=== PATIENT | female | born 1990 | race Caucasian/White ===

== ENCOUNTER 2019-09-10 14:30 | Outpatient (RCR) | payer BC, SELFPAY ==
[2019-09-10 16:16] LABS: Hematocrit 32.7 % (37.0-47.0)
[2019-09-10 16:29] LABS: Glucose 1 Hour PP 50gm Dose 194 mg/dL
[2019-09-10 17:10] LABS: HIV 1/2 Ab P24 Ag Result Negative (Negative)
[2019-09-11 10:29] LABS: Rapid Plasma Reagin Non-Reactive (NonReactive)
[2019-09-13] MEDS: RHO(D) IMMUNE GLOBULIN 300 MCG SYRINGE IM (18:11)
== END 2019-12-09 23:59 | disposition home or self-care (01) ==
LOC: ANHLAB 14:30
PROVIDERS: PCP Physician Assistant; Visit Provider Obstetrics & Gynecology
DX: Z36.89 Encounter for other specified antenatal screening (principal); Z29.13 Encounter for prophylactic Rho(D) immune globulin; O36.0990 Maternal care for other rhesus isoimmunization, unspecified trimester, not applicable or unspecified; Z3A.00 Weeks of gestation of pregnancy not specified
CPT/HCPCS: 36415; 82947; 85014; 85018; 86592; 86703; 86900; 86901; 90384; 96372; G0432; J2790

== ENCOUNTER 2019-11-27 11:11 | Outpatient (CLI) | payer BC, SELFPAY ==
[2019-11-27 11:35] VITALS: BP 137/82; PULSE 81
[2019-11-27 11:45] VITALS: BP 133/79; PULSE 91
[2019-11-27 11:51] LABS: Basophils Percent Auto 0.3 % (0.2-1.2); Eosinophils Percent Auto 0.3 % (0-4.4); Hematocrit 36.9 % (37.0-47.0); Hemoglobin 12.7 g/dL (12.0-15.0); Immature Granulocyte Absolute 0.13 K/mm3 (0.00-0.031); Immature Granulocyte Percent A 1.7 % (0-0.5); Lymphocytes Absolute Auto 1.78 K/mm3 (0.9-3.2); Lymphocytes Percent Auto 22.8 % (18.3-44.2); Mean Corpuscular HGB Conc 34.4 g/dl (32-36); Mean Corpuscular Hemoglobin 30.8 pg (26-34); Mean Corpuscular Volume 89.6 fl (80-100); Mean Platelet Volume 12.2 fl (7.4-10.4); Monocytes Absolute Auto 0.6 K/mm3 (0.1-0.6); Monocytes Percent Auto 7.4 % (2.6-8.5); Neutrophils Absolute Auto 5.3 K/mm3 (1.3-6.7); Neutrophils Percent Auto 67.5 % (45.5-73.1); Platelet Count Result 142 k/mm3 (150-375); Red Blood Count 4.12 M/mm3 (4.2-5.4); Red Cell Distribution Width 12.5 % (11.5-14.5); White Blood Count 7.8 K/mm3 (4.5-10.0)
[2019-11-27 11:56] LABS: Creatinine Urine 41.7 mg/dL; Total Protein Urine Random 16 mg/dL
[2019-11-27 11:57] LABS: Add Urine Microscopic? YES; Appearance Urine Cloudy (Clear); Bacteria Urine Trace /hpf; Bilirubin Urine Negative (Negative); Blood Urine 3+ (Negative); Color Urine Straw (Yellow); Glucose Urine UA Negative (Negative); Ketones Urine Negative (Negative); Leukocyte Esterase Ur 1+ LEU/UL (NEGATIVE); Mucus Urine Rare /lpf; Nitrate Urine Negative (Negative); Protein Urine Negative (Negative); Specific Grav Ur 1.012 (1.001-1.035); Squamous Epithelial Cell Urine Many /hpf (Few); Urobilinogen Urine Negative mg/dL (<2.0); WBC Urine 16-20 /hpf (0-3)
[2019-11-27 12:00] VITALS: BP 135/82; PULSE 90
[2019-11-27 12:03] LABS: Alanine Aminotransferase 14 U/L (4-35); Albumin Level 3.5 g/dL (3.5-5.1); Alkaline Phosphatase 133 U/L (38-126); Aspartate Amino Transferase 20 U/L (14-36); Bilirubin,Total 0.2 mg/dL (0.2-1.3); Blood Urea Nitrogen 4 mg/dL (7-17); Calcium 8.9 mg/dL (8.4-10.2); Carbon Dioxide 21 mmol/L (22-30); Chloride 106 mmol/L (98-107); Estimated Glomerular Filt Rate > 60; Glucose 99 mg/dL (65-105); Potassium 3.6 mmol/L (3.4-5.0); Sodium 133 mmol/L (137-145); Uric Acid 3.6 mg/dL (2.5-7.5)
[2019-11-27 12:04] VITALS: TEMP 36.6
[2019-11-27 12:15] VITALS: BP 129/81; PULSE 94
[2019-11-27 15:34] VITALS: BP 137/82; PULSE 82
== END 2019-11-27 15:46 | disposition home or self-care (01) ==
LOC: ANHOBOP 11:16 → ANHOBPP 11:18 → ANHLDR 12-03 08:40
PROVIDERS: Advanced Practice Midwife; PCP Physician Assistant; Visit Provider Obstetrics & Gynecology
DX: O13.9 Gestational [pregnancy-induced] hypertension without significant proteinuria, unspecified trimester (principal)
CPT/HCPCS: 36415; 80053; 81001; 82570; 84156; 84550; 85025; 87086; 99199

== ENCOUNTER 2019-11-30 05:00 | Inpatient (IN) | payer BC, SELFPAY ==
[2019-11-30] VITALS (127 sets, daily range): BP systolic 100–147; BP diastolic 44–119; PULSE 62–116; RESP 18–20; TEMP 36.3–37.3; O2SAT 98–100; BMI 34.4
--- NOTE | 2019-11-30 05:30 | LDADM ---
This patient, Emilee Alatorre, was admitted to Labor/Delivery/Recovery 103 on 11/30/19 at 05:00. Plans for labor, pain management and were discussed with patient. Patient/family oriented to hospital policies and general routines including ID bracelet, bed and alarms, visiting hours, pain management, procedures, bathroom and other care routines, personal items, smoking policy, room service/diet and guest tray routines, infant security routines, and visiting hours. Patient/Family are encouraged to report perceived risks to care and to ask questions if they do not understand what they are told or what they should do. See OBIX for further documentation.
[2019-11-30] MEDS: LACTATED RINGERS 1,000 ML 125 ML IV CONT ×3 (05:55→14:53)
[2019-11-30] MEDS: AMPICILLIN 2 GM/NS 100 ML 2 GM/100 ML BAG IVPB (05:55)
[2019-11-30] MEDS: OXYTOCIN 30 UNITS/NS 500 ML 30 UNITS/500 ML BAG IV CONT (06:01)
[2019-11-30 06:12] LABS: Basophils Percent Auto 0.2 % (0.2-1.2); Eosinophils Percent Auto 0.4 % (0-4.4); Hematocrit 36.4 % (37.0-47.0); Hemoglobin 12.4 g/dL (12.0-15.0); Immature Granulocyte Absolute 0.12 K/mm3 (0.00-0.031); Immature Granulocyte Percent A 1.5 % (0-0.5); Lymphocytes Percent Auto 28.7 % (18.3-44.2); Mean Corpuscular HGB Conc 34.1 g/dl (32-36); Mean Corpuscular Hemoglobin 30.5 pg (26-34); Mean Corpuscular Volume 89.7 fl (80-100); Mean Platelet Volume 12.4 fl (7.4-10.4); Monocytes Absolute Auto 0.5 K/mm3 (0.1-0.6); Monocytes Percent Auto 5.9 % (2.6-8.5); Neutrophils Absolute Auto 5.1 K/mm3 (1.3-6.7); Neutrophils Percent Auto 63.3 % (45.5-73.1); Platelet Count Result 147 k/mm3 (150-375); Red Blood Count 4.06 M/mm3 (4.2-5.4); Red Cell Distribution Width 12.4 % (11.5-14.5)
--- NOTE | 2019-11-30 06:32 | P.PNAN_ITS ---
Anes - Eval Pre Procedure Procedure: Labor epidural Date/Time: 11/30/19 06:32 Surgeon: Rakesh Thapa M.D. Preop Diagnosis: pain during labor Pre Op Diagnosis: Induction Patient Data Age: 29 Gender: F Height: 1.68 m Weight: 97 kg Last Vital Signs Temp 37.3 C 11/30/19 06:02 Pulse 77 11/30/19 06:31 BP 137/82 11/30/19 06:31 Allergies Allergy/AdvReac Type Severity Reaction Status Date / Time No Known Allergies Allergy Mild Verified 12/29/10 14:09 Home Medications Medication Instructions Recorded Confirmed Type PNV cmb#95-ferrous fumarate-FA 1 tablet PO DAILY 11/22/19 11/22/19 History [] lisdexamfetamine [Vyvanse] 20 mg PO DAILY 11/22/19 11/22/19 History Laboratory Tests 11/30/19 11/30/19 05:59 05:59 WBC 8.0 K/mm3 K/mm3 (4.5-10.0) RBC 4.06 M/mm3 L M/mm3 (4.2-5.4) Hgb 12.4 g/dL g/dL (12.0-15.0) Hct 36.4 % L % (37.0-47.0) MCV 89.7 fl fl (80-100) MCH 30.5 pg pg (26-34) MCHC 34.1 g/dl g/dl (32-36) RDW 12.4 % % (11.5-14.5) Plt Count 147 k/mm3 L k/mm3 (150-375) MPV 12.4 fl H fl (7.4-10.4) Immature Gran % (Auto) 1.5 % H % (0-0.5) Neut % (Auto) 63.3 % % (45.5-73.1) Lymph % (Auto) 28.7 % % (18.3-44.2) [place] % (Auto) 5.9 % % (2.6-8.5) Eos % (Auto) 0.4 % % (0-4.4) Baso % (Auto) 0.2 % % (0.2-1.2) Lymph # (Auto) 2.30 K/mm3 K/mm3 (0.9-3.2) [place] # (Auto) 0.5 K/mm3 K/mm3 (0.1-0.6) Eos # (Auto) 0.0 K/mm3 K/mm3 (0-0.3) Baso # (Auto) 0.0 K/mm3 K/mm3 (0.0-0.1) Abs Immat Gran (auto) 0.12 K/mm3 H K/mm3 (0.00-0.031) Absolute Neuts (auto) 5.1 K/mm3 K/mm3 (1.3-6.7) Absolute Nucleated RBC 0.0 K/mm3 K/mm3 (0.0-0.012) Nucleated RBC % 0.0 % % (0.0-0.2) RPR Pending Patient hx anesthesia problems: none Family hx anesthesia problems: none [facility] Past Medical History Medical History (Updated 11/30/19 @ 06:33 by Sindy Fischer CRNA) ADHD Family History Family History (Updated 11/22/19 @ 13:45 by Erasmo Whitlock RN) Grandparent Diabetes mellitus Social History Social History Smoking status: Former smoker Tobacco type: e-cigarettes/vaping Substance use: never Gender identity (if verbalized by the patient): Female Spiritual care concerns: No Exam Day of Procedure 11/30/19 06:32
--- NOTE | 2019-11-30 07:28 | WPDOBADMIT ---
Obstetrics - Admit Note Admission Note: record reviewed. No pertinent additions to the history and/or any subsequent changes in the physical findings that are not consistent with the expected course of the were found. Induction of labor, newly developed GHTN, plan pitocin, AROM attempted but pt uncomfortable, anticipate vaginal delivery Additions to the history and/or subsequent changes in the physical findings follow. None.
[2019-11-30] MEDS: AMPICILLIN 1 GM/NS 50 ML 1 GM/50 ML BAG IVPB ×2 (10:38→14:30)
[2019-11-30 11:20] LABS: Rapid Plasma Reagin Non-Reactive (NonReactive)
--- NOTE | 2019-11-30 16:04 | PM.OBPNVD ---
OB - PN: Subj Subjective Date/time seen: 11/30/19 16:04 OB - PN: Obj Data Labs CBC & Chem 7: 11/30/19 05:59 Labs: Laboratory Results - last 24 hr 11/30/19 11/30/19 11/30/19 05:59 05:59 05:59 WBC 8.0 RBC 4.06 L Hgb 12.4 Hct 36.4 L MCV 89.7 MCH 30.5 MCHC 34.1 RDW 12.4 Plt Count 147 L MPV 12.4 H Immature Gran % (Auto) 1.5 H Neut % (Auto) 63.3 Lymph % (Auto) 28.7 [place] % (Auto) 5.9 Eos % (Auto) 0.4 Baso % (Auto) 0.2 Lymph # (Auto) 2.30 [place] # (Auto) 0.5 Eos # (Auto) 0.0 Baso # (Auto) 0.0 Abs Immat Gran (auto) 0.12 H Absolute Neuts (auto) 5.1 Absolute Nucleated RBC 0.0 Nucleated RBC % 0.0 RPR Non-reactive Blood Type O Negative Antibody Screen Negative OB - PN A/P Time Spent With Patient Time: Total time spent is greater than 50% in coordination of care (as documented) at patient's floor/unit and/or counseling patient: AROM moderate amount of clear fluid, anticipate vaginal delivery
--- NOTE | 2019-11-30 18:06 | P.PCNOB_ITS ---
OB - Delivery Note Procedure Delivery date: 11/30/19 Procedure: vaginal delivery events: Induced HTN Intrapartal events: None Induction method: AROM and per pitocin protocol Delivery monitor: external FHT and internal uterine Route of delivery: Laceration description: None Specimen: Yes Estimated blood loss (mL): 210 Anesthesia type: Epidural Disposition: other () [place] Baby Date of : 11/30/19 Time of : 17:51 Weeks of gestation at delivery: 40 gender: Male Weight (pounds): 7 Weight (ounces): 3 presentation: vertex position: Left Occiput Anterior Placenta delivery description: Spontaneous cord vessel description: 3 Vessels and Tight (around foot x 3) score one minute: 8 score five minutes: 9
[2019-11-30] MEDS: OXYTOCIN 30 UNITS/NS 500 ML 30 UNITS/500 ML BAG 125 UNITS IV CONT (18:31)
[2019-11-30] MEDS: BENZOCAINE 20% AER SPR (*SP) 56 GM CAN 1 SPRAY TOPICAL (20:47)
[2019-11-30] MEDS: WITCH HAZEL 40 PADS 1 PAD TOPICAL (20:47)
--- NOTE | 2019-11-30 21:09 | PHAR ---
HOME MEDICATION VERIFIED BY PHARMACY: VYVANSE 20MG CAPSULES 1 CAP PO QA RX#[id number]
[2019-11-30] MEDS: IBUPROFEN 600 MG TABLET PO (21:24)
--- NOTE | 2019-11-30 21:44 | OBPPTRN ---
Patient transferred to post room #287 via WC. Support person present. Oriented to unit, room, information board, rooming in, admission packet and security measures. Patient verbalizes understanding. Infant to room 287 per crib with patient.
[2019-12-01] MEDS: LANOLIN (LANSINOH) 7.5 GM CREAM 1 APPLIC TOPICAL
[2019-12-01 04:40] LABS: Hematocrit 32.1 % (37.0-47.0); Hemoglobin 10.7 g/dL (12.0-15.0)
[2019-12-01] MEDS: IBUPROFEN 600 MG TABLET PO ×2 (07:23→16:40)
[2019-12-01] MEDS: MULTIVIT/MIN/PREN/FOL AC/IRON TABLET 1 TAB PO (07:23)
[2019-12-01 07:25] VITALS: BP 130/76; PULSE 78; RESP 18; TEMP 37.3
[2019-12-01 11:52] LABS: Basophils Percent Auto 0.2 % (0.2-1.2); Eosinophils Percent Auto 0.2 % (0-4.4); Hematocrit 32.5 % (37.0-47.0); Immature Granulocyte Absolute 0.08 K/mm3 (0.00-0.031); Immature Granulocyte Percent A 0.9 % (0-0.5); Lymphocytes Absolute Auto 1.51 K/mm3 (0.9-3.2); Lymphocytes Percent Auto 17.2 % (18.3-44.2); Mean Corpuscular HGB Conc 33.8 g/dl (32-36); Mean Corpuscular Hemoglobin 30.9 pg (26-34); Mean Corpuscular Volume 91.3 fl (80-100); Mean Platelet Volume 12.5 fl (7.4-10.4); Monocytes Absolute Auto 0.6 K/mm3 (0.1-0.6); Monocytes Percent Auto 6.8 % (2.6-8.5); Neutrophils Absolute Auto 6.5 K/mm3 (1.3-6.7); Neutrophils Percent Auto 74.7 % (45.5-73.1); Platelet Count Result 117 k/mm3 (150-375); Red Blood Count 3.56 M/mm3 (4.2-5.4); Red Cell Distribution Width 12.6 % (11.5-14.5); White Blood Count 8.8 K/mm3 (4.5-10.0)
[2019-12-01 12:09] LABS: Alanine Aminotransferase 13 U/L (4-35); Alkaline Phosphatase 106 U/L (38-126); Aspartate Amino Transferase 26 U/L (14-36); Bilirubin,Total 0.2 mg/dL (0.2-1.3); Blood Urea Nitrogen 7 mg/dL (7-17); Calcium 8.4 mg/dL (8.4-10.2); Carbon Dioxide 25 mmol/L (22-30); Chloride 108 mmol/L (98-107); Estimated CRCL calculation 141 ml/min; Estimated Glomerular Filt Rate > 60; Glucose 82 mg/dL (65-105); Potassium 3.9 mmol/L (3.4-5.0); Sodium 135 mmol/L (137-145); Uric Acid 3.4 mg/dL (2.5-7.5)
--- NOTE | 2019-12-01 13:33 | PM.OBPNVD ---
OB - PN: Subj Subjective Date/time seen: 12/01/19 1025 OB - PN: Obj Data Labs CBC & Chem 7: 12/01/19 11:37 12/01/19 11:37 Labs: Laboratory Results - last 24 hr 12/01/19 12/01/19 12/01/19 04:29 04:29 11:37 WBC 8.8 RBC 3.56 L Hgb 10.7 L 11.0 L Hct 32.1 L 32.5 L MCV 91.3 MCH 30.9 MCHC 33.8 RDW 12.6 Plt Count 117 L MPV 12.5 H Immature Gran % (Auto) 0.9 H Neut % (Auto) 74.7 H Lymph % (Auto) 17.2 L [place] % (Auto) 6.8 Eos % (Auto) 0.2 Baso % (Auto) 0.2 Lymph # (Auto) 1.51 [place] # (Auto) 0.6 Eos # (Auto) 0.0 Baso # (Auto) 0.0 Abs Immat Gran (auto) 0.08 H Absolute Neuts (auto) 6.5 Absolute Nucleated RBC 0.0 Nucleated RBC % 0.0 Sodium Potassium Chloride Carbon Dioxide BUN Creatinine Estim Creat Clear Calc Estimated GFR Glucose Uric Acid Calcium Total Bilirubin AST ALT Alkaline Phosphatase Total Protein Albumin Blood Type O Negative Antibody Screen Negative Screen Negative Baby's Blood Type O pos Baby's FRANCISCO Negative Doses of RhIg Required 1 12/01/19 11:37 WBC RBC Hgb Hct MCV MCH MCHC RDW Plt Count MPV Immature Gran % (Auto) Neut % (Auto) Lymph % (Auto) [place] % (Auto) Eos % (Auto) Baso % (Auto) Lymph # (Auto) [place] # (Auto) Eos # (Auto) Baso # (Auto) Abs Immat Gran (auto) Absolute Neuts (auto) Absolute Nucleated RBC Nucleated RBC % Sodium 135 L Potassium 3.9 Chloride 108 H Carbon Dioxide 25 BUN 7 Creatinine 0.60 L Estim Creat Clear Calc 141 Estimated GFR > 60 Glucose 82 Uric Acid 3.4 Calcium 8.4 Total Bilirubin 0.2 AST 26 ALT 13 Alkaline Phosphatase 106 Total Protein 6.0 L Albumin 3.0 L Blood Type Antibody Screen Screen Baby's Blood Type Baby's FRANCISCO Doses of RhIg Required OB - PN A/P Plan day: 1 Plan: routine care Comments: Pt desires d/c home today. She has had a few elevated blood pressures post . I would like to check PIH labs. If they are normal and bp remains normal we could consider d/c to home this eveing. Pt is able to monitor bp at home. Discussed s/s of pih in great detail and precautions given. Pt verbalized understanding. Will await lab results. Time Spent With Patient Time: Total time spent is greater than 50% in coordination of care (as documented) at patient's floor/unit and/or counseling patient: Review of Systems Review of Systems: All systems reviewed & are unremarkable except as noted in HPI and below Exam Narrative: Exam Narrative: Pt denies h/a, v/d, or e/p. Minimal/trace lower ext edema. DTR 2+ no clonus. Const: General: comfortable Chest: Breast/axilla inspection: normal inspection of the breasts Resp: Effort & Inspection: normal respiratory effort Auscultation: clear to auscultation bilaterally Cardio: Rate: regular rate GI: Auscultation: normal bowel sounds Psych: Appearance: grossly normal Affect: normal affect Attitude: cooperative Judgement: Good judgement present (Psych)
[2019-12-01] MEDS: RHO(D) IMMUNE GLOBULIN 300 MCG SYRINGE IM (16:54)
[2019-12-01 19:00] VITALS: BP 134/87; PULSE 68; RESP 18; TEMP 36.7; O2SAT 100
[2019-12-01 19:11] LABS: Basophils Percent Auto 0.3 % (0.2-1.2); Eosinophils Percent Auto 0.4 % (0-4.4); Hematocrit 32.6 % (37.0-47.0); Hemoglobin 10.9 g/dL (12.0-15.0); Immature Granulocyte Absolute 0.12 K/mm3 (0.00-0.031); Immature Granulocyte Percent A 1.3 % (0-0.5); Lymphocytes Absolute Auto 2.16 K/mm3 (0.9-3.2); Lymphocytes Percent Auto 23.8 % (18.3-44.2); Mean Corpuscular HGB Conc 33.4 g/dl (32-36); Mean Corpuscular Hemoglobin 30.8 pg (26-34); Mean Corpuscular Volume 92.1 fl (80-100); Mean Platelet Volume 11.9 fl (7.4-10.4); Monocytes Absolute Auto 0.6 K/mm3 (0.1-0.6); Monocytes Percent Auto 6.2 % (2.6-8.5); Neutrophils Absolute Auto 6.2 K/mm3 (1.3-6.7); Platelet Count Result 122 k/mm3 (150-375); Red Blood Count 3.54 M/mm3 (4.2-5.4); Red Cell Distribution Width 12.8 % (11.5-14.5); White Blood Count 9.1 K/mm3 (4.5-10.0)
[2019-12-01 19:23] LABS: Alanine Aminotransferase 13 U/L (4-35); Alkaline Phosphatase 116 U/L (38-126); Aspartate Amino Transferase 23 U/L (14-36); Bilirubin,Total < 0.1 mg/dL (0.2-1.3); Blood Urea Nitrogen 7 mg/dL (7-17); Calcium 8.4 mg/dL (8.4-10.2); Carbon Dioxide 22 mmol/L (22-30); Chloride 108 mmol/L (98-107); Estimated CRCL calculation 166 ml/min; Estimated Glomerular Filt Rate > 60; Glucose 102 mg/dL (65-105); Potassium 3.8 mmol/L (3.4-5.0); Sodium 136 mmol/L (137-145); Uric Acid 3.4 mg/dL (2.5-7.5)
--- NOTE | 2019-12-01 20:00 | PC.NURSE ---
Patient refused rubella vaccine.
[2019-12-03 09:39] VITALS: BP 129/82; PULSE 68; RESP 20; TEMP 36.6
--- NOTE | 2019-12-05 20:02 | PM.OBDSVD ---
DS: Admitting Diagnosis Admitting Diagnosis Admitting Diagnosis: Encounter for supervision of normal , unspecified, third trimester OB - DS: Summary OB Procedures : None OB Procedures Intrapartum: Spontaneous Vag Delivery OB Procedures: : None Time Spent with Patient Time attestation: Total time spent providing and/or coordinating discharge services: DS: Data Data Completed and Pending Completed studies during hospitalization: Pending at discharge 11/30/19 18:28 Surgical [PTH] Routine Discharge Plan Discharge Consulting providers: Lupe Jara ; Catherine Greenberg Discharging Clinician: Catherine Greenberg Patient Disposition: Home, Self-Care Activity: may shower, may drive after 2 weeks and pelvic rest Diet: regular Discharge Instructions: Education: Mom and Baby Guide Given to: Mother PIH Precautions discussed and handout given. Follow-Up: Call your delivering provider's office for an appointment to be seen in: 1 Week for blood pressure check. Mom and baby should come to the [facility] for the follow-up appointment. Appointment Date/Time: Tuesday, December 03, 2019 at 9:00 am What to expect at your follow-up visit: Blood Pressure Check Physical Assessment Call [phone] if you are unable to keep your appointment time. BREAST CARE: 1. Wear a snug supportive bra. 2. For engorgement discomfort: Breast Feeding: A. Apply warm moist washcloths B. Express milk as needed to relieve engorgement C. Wear loose clothing Bottle Feeding: A. May apply ice packs 3. For sore nipples: A. Identify correct latch-on B. Apply warm moist washcloths before and after nursing C. Air dry nipples after nursing D. May apply Lansinoh cream to nipples EPISIOTOMY/PERINEAL CARE: 1. Until bleeding stops, use your anthony bottle after urinating 2. Change your pad frequently throughout the day 3. You may take sitz baths several times a day (fill your bathtub with warm water and soak for 20 minutes.) Do NOT bathe in the water 4. No tub baths until seen by your physician - You may shower ACTIVITY: 1. Rest as much as possible. 2. Do not exercise or lift anything heavier than your baby (such as laundry or other children.) 3. Avoid stairs or driving as much as possible. 4. Do not put anything into the vagina. No douching, tampons, or sexual activity until seen by physician. NOTIFY PHYSICIAN IF YOU HAVE ANY QUESTIONS OR IF ANY OF THE FOLLOWING SYMPTOMS OCCUR: 1. If your episiotomy or incision becomes red, swollen, or more painful than what you have experienced in the hospital. 2. If your vaginal bleeding becomes foul smelling. 3. If your vaginal bleeding becomes more heavy than a period or if your bleeding changes from pink to bright red. However, you may pass an occasional walnut-sized clot once or twice for the first week . 4. If you experience a sharp, shooting pain in you calves. 5. If you discover a hard, reddened area on your breast or if you experience flu-like symptoms. DIET: 1. Eat regular, well-balanced meals. 2. Drink plenty of fluids daily. If , drink to thirst. Patient Instructions: Antibiotic Form Stand Alone Forms: General Discharge Information Follow-up/Referrals: Catherine Greenberg CNM [Certified Nurse Medication Specialist] - Discharge Medications: New KPN Tablet 1 tab PO DAILY RF: 0 Preparation H (Crow Banerjee) 50 % Pads, Medicated 1 pad topical PRN PRN (Reason: Perineal Discomfort) RF: 0 Continued Vyvanse 20 mg Capsule 20 mg PO DAILY RF: 0 Discontinued PNV cmb#95-ferrous fumarate-FA [] 28 mg iron- 800 mcg Tablet 1 tablet PO DAILY RF: 0 Date of admission: 11/30/19 05:00 Primary Care Provider: Shelly,Kaylee Admitting Provider: Zoë Thapa Discharge Date/Time: 12/01/19 20:25 Attending rolo
== END 2019-12-01 20:25 | disposition home or self-care (01) | DRG 807 ==
LOC: ANHLDR 05:19 → ANHOB2 21:56
PROVIDERS: Advanced Practice Midwife; Admitting Provider Obstetrics & Gynecology; PCP Physician Assistant; Visit Provider Obstetrics & Gynecology
DX: O13.4 Gestational [pregnancy-induced] hypertension without significant proteinuria, complicating childbirth (principal); Z37.0 Single live birth; Z3A.40 40 weeks gestation of pregnancy; O99.824 Streptococcus B carrier state complicating childbirth; O36.8330 Maternal care for abnormalities of the fetal heart rate or rhythm, third trimester, not applicable or unspecified; O69.2XX0 Labor and delivery complicated by other cord entanglement, with compression, not applicable or unspecified; O99.344 Other mental disorders complicating childbirth; F90.9 Attention-deficit hyperactivity disorder, unspecified type
CPT/HCPCS: 36415; 80053; 81001; 82570; 84156; 84550; 85014; 85018; 85025; 85461; 86592; 86850; 86900; 86901; 87086; 88307; 90384; 99199; A9270; J0290; J2590; J2790; J2795; J7120

== ENCOUNTER 2021-09-07 13:27 | Outpatient (CLI) | payer BC, SELFPAY ==
--- NOTE | ~2021-09-07 | US_ITS ---
US breast RT limited INDICATION: Probable right breast lump TECHNIQUE: Dedicated right breast ultrasound COMPARISON: No prior studies for comparison. FINDINGS: The right breast is composed of normal heterogeneous echotexture without focal solid or cys tic mass. IMPRESSION: 1: Normal right breast ultrasound. BI-RADS CATEGORY 1 - NEGATIVE Reviewed, dictated and finalized at location A. [facility]
== END 2021-09-07 13:28 | disposition home or self-care (01) ==
LOC: ANHIMG 13:32
PROVIDERS: PCP Physician Assistant; Visit Provider Nurse Practitioner Obstetrics & Gynecology
DX: N64.4 Mastodynia (principal)
CPT/HCPCS: 76642; J2785